=== PATIENT | male | born 1955 | race Caucasian/White ===

== ENCOUNTER 2020-10-05 21:30 | Emergency (ER) | payer SELFPAY ==
[~2020-10-05] VITALS: Ht 172.7 cm; Wt 85.5 kg
[2020-10-05] MEDS ORDERED: LIDOCAINE 1% Multi-Dose 20 ML VIAL. INJ ONE (22:00)
[2020-10-06 00:06] VITALS: BP 174/86
[2020-10-06] MEDS ORDERED: CIPR7.5D RIGHT EAR (00:06)
[2020-10-06] MEDS ORDERED: AMOX1TAB61 PO (00:06)
--- NOTE | 2020-10-06 00:06 | PHYS DOC ---
Past Medical History Past Medical History: Diabetes-Type II Past Surgical History: No Surgical History Smoking Status: Current Every Day Smoker Alcohol Use: None General Adult EDM: Chief Complaint: FOREIGNBODY EAR HPI: HPI: 64 yo M presents to the ed with c/o foreign body sensation in right ear, asks if he has a bug/cockroach in his ear. Reports symptoms have been present for the past day. Denies any hearing loss, tinnitus, dizziness, fever, headache or n uchal rigidity. Upholstery Handler services used during pt encounter. Review of Systems: Review of Systems: Constitutional: Denies fever or chills. [] Eyes: Denies change in visual acuity. [] HENT: Denies nasal congestion or sore throat. [] Respiratory: Denies cough or shortness of breath. [] Cardiovascular: Denies chest pain or edema. [] GI: Denies abdominal pain, nausea, vomiting, bloody stools or diarrhea. [] : Denies dysuria. [] Musculoskeletal: Denies back pain or joint pain. [] Integument: Denies rash. [] Neurologic: Denies headache, neck stiffness, focal weakness or sensory changes. [] Endocrine: Denies polyuria or polydipsia. [] Lymphatic: Denies swollen glands. [] Psychiatric: Denies depression or anxiety. [] Heart Score: Risk Factors: Risk Factors: DM, Current or recent (<one month) smoker, HTN, HLP, family history of CAD, obesity. Risk Scores: Score 0 - 3: 2.5% MACE over next 6 weeks - Discharge Home Score 4 - 6: 20.3% MACE over next 6 weeks - Admit for Clinical Observation Score 7 - 10: 72.7% MACE over next 6 weeks - Early Invasive Strategies Current Medications: Current Medications Medications (Trade) Dose Ordered Sig/[facility] Start Time Stop Time Status Last Admin Dose Admin Lidocaine HCl (Lidocaine 1% 20ml Vial) 20 ml 1X ONCE 10/05/20 22:00 10/05/20 22:01 DC 10/05/20 22:06 20 ML Allergies: Allergies: Allergies Coded Allergies Type Severity Reaction Last Updated Verified No Known Drug Allergies 10/05/20 No Physical Exam: PE: Constitutional: Well developed, well nourished, no acute distress, non-toxic appearance. HENT: Normocephalic, atraumatic, normal left ear exam, right ear with TM visualized, yellow cerumen deep in ear canal with black debris in multiple pieces, no moving organisms, Eyes: EOMI, no discharge. Neck: Normal range of motion, supple, Cardiovascular: S1/2 present, regular rhythm Lungs & Thorax: Speaking in full sentences, bilateral equal chest rise, no tachypnea or increased work of breathing Abdomen: soft, no tenderness, Skin: Warm, dry, no erythema, no rash. [] Extremities: No tenderness, no cyanosis, Neurologic: Alert and oriented X 3, normal motor function, normal sensory function, no focal deficits noted. [] Psychologic: Affect normal, judgement normal, mood normal. [] Current Patient Data: Vital Signs: Vital Signs Date Time Temp Pulse Resp B/P (MAP) Pulse Ox O2 Delivery O2 Flow Rate FiO2 10/05/20 21:57 98.7 71 18 155/83 (107) 95 Room Air 98.7 EKG: EKG: [] Radiology/Procedures: Radiology/Procedures: [] Course & Med Decision Making: Course & Med Decision Making Pertinent Labs and Imaging studies reviewed. (See chart for details) Concern for possible bug or foreign body in right ear with visualized cerumen and black debris. Lidocaine injected in ear initially. Irrigated via rn with warm saline. RN irrigated ear and removed cerumen/bug parts including legs.body scene. Cerumen and debris is deep in ear canal. I suspect this has been in pts' ear for longer than 1 day. Cannot appreciated tm perforation, no bulging or red tm. Ear canal irritated during irrigation and pt requests to stop. Will dc with ciprodex with strict ED return precautions were given for fever, dizziness, hearing loss, headache or nuchal rigidity. Encouraged urgent outpatient follow- up with PMD and ENT for definitive management. Life-threatening processes were considered but are low suspicion at this time, given history, physical exam and ED workup. Pt was educated on all prescription medications and adverse effects. All patient's questions were answered and pt was stable at time of discharge. Life/limb-threatening differential includes but is not limited to, auricular he matoma or perichondritis, malignant otitis externa, otitis externa or media, otomycosis, bullous myringitis, mastoiditis, hearing loss or vestibular disorder, tympanic membrane rupture, herpes zoster oticus, contact dermatitis, cholesteatoma, meningitis, brain abscess or venous/cavernous/cerebral sinus thrombosis. I spoken with the patient and her caregivers. I explained the patient's condition, diagnoses and treatment plan based on the information available to me at this time. I have answered the patient and her caregiver's questions and addressed any concerns. The patient and her caregivers have a good understanding of patient's diagnosis, condition and treatment plan as can be expected at this point. Vital signs have been stable. Patient's condition is stable and appropriate for discharge from the emergency department. Patient will pursue further outpatient evaluation with primary care physician or other designated or consulting physician as outlined in the discharge instructions. The patient and/or caregivers are agreeable to this plan of care and follow-up instructions have been explained in detail. The patient and/or c aregivers have received these instructions in written form and have expressed an understanding of the discharge instructions. The patient and/or caregivers are aware that any significant change of condition or worsening of symptoms should prompt immediate return to this or the closest emergency department or [facility] Disclaimer: Gregg Disclaimer: This electronic medical record was generated, in whole or in part, using a voice recognition dictation system. Departure Departure Impression: Primary Impression: Foreign body in right ear Disposition: 01 DC HOME SELF CARE/HOMELESS Condition: STABLE Referrals: NON,STAFF (PCP) FOLLOW UP WITH FAMILY MEDICINE: Family Medicine Address: [address] [facility] [address] [place] [address] Patient Instructions: Ear Foreign Body Additional Instructions: FOLLOW UP WITH ENT: Otolaryngology Address: [facility] [facility], [address] [place] [address] [employer] [facility] Address: [address] [address] EMERGENCY DEPARTMENT GENERAL DISCHARGE INSTRUCTIONS Thank you for coming to [facility] Emergency Department (ED) today and trusting us with you care. We trust that you had a positive experience in our Emergency Department. If you wish to speak to the department management, you may call the Director at [phone]. YOUR FOLLOW UP INSTRUCTIONS ARE FOLLOWS: 1. Do you have a private Doctor? If you do not have a private doctor, please ask for a resource list of physicians or clinics that may be able to assist you with follow up care. 2. The Emergency Physicain has interpreted your x-rays. The X-Ray specialist will also review them. If there is a change in the findings, you will be notified in 48 hours when at all possible. 3. A lab test or culture has been done, your results will be reviewed and you will be notified if you need a change in treatment. ADDITIONAL INSTRUCTIONS AND INFORMATION: 1. Your care today has been supervised by a physician who is specially trained in emergency care. Many problems require more than one evaluation for a complete diagnosis and treatment. We recommend that you schedule your follow up appointment as recommended to ensure complete treatment of you illness or injury. If you are unable to obtain follow up care and continue to have a problem, or if your condition worsens, we recommend that you return to the ED. 2. We are not able to safely determine your condition over the phone nor are we able to give sound medical advice over the phone. For these safety reasons, if you call for medical advice we will ask you to come to the ED for further evaluation. 3. If you have any questions regarding these discharge instructions please call the ED at [phone]. SAFETY INFORMATION: In the interest of safety, wellness, and injury prevention; we encourage you to wear your sealbelt, if you smoke; quite smoking, and we encourage family to use a protective helmet for bicycling and other sporting events that present an increased risk for head injury. IF YOUR SYMPTOMS WORSEN OR NEW SYMPTOMS DEVELOP, OR YOU HAVE CONCERNS ABOUT YOUR CONDITION; OR IF YOUR CONDITION WORSENS WHILE YOU ARE WAITING FOR YOUR FOLLOW UP APPOINTMENT; EITHER CONTACT YOUR PRIMARY CARE DOCTOR, THE PHYSICIAN WHOSE NAME AND NUMBER YOU WERE GIVEN, OR RETURN TO THE ED IMMEDIATELY. Scripts Amoxicillin/Potassium Clav (AUGMENTIN 875-125 TABLET) 1 Each Tablet 1 TAB PO Q12HR for 10 Days, #20 TAB Prov: JD ALATORRE DO 10/06/20 Ciprofloxacin Hcl/Dexameth (CIPRODEX OTIC SUSPENSION) 7.5 Ml Drops.susp 3 DROP RIGHT EAR BID for 7 Days, #7.5 ML Prov: JD ALATORRE DO 10/06/20 JD ALATORRE DO Oct 06, 2020 00:06
== END 2020-10-06 00:09 | disposition home or self-care (01) ==
LOC: ER 21:30
DX: T16.1XXA Foreign body in right ear, initial encounter (principal); E11.9 Type 2 diabetes mellitus without complications; F17.200 Nicotine dependence, unspecified, uncomplicated; X58.XXXA Exposure to other specified factors, initial encounter; Y93.89 Activity, other specified; Y92.89 Other specified places as the place of occurrence of the external cause; Y99.8 Other external cause status
CPT/HCPCS: 69200; 99285; J3490; 99284